=== PATIENT | female | born 1980 | race Hispanic/Latino ===

== ENCOUNTER 2017-10-14 12:28 | Emergency (ER) | payer BC ==
[2017-10-14 13:32] LABS: APPEARANCE,URINE Clear (CLEAR); BILIRUBIN,URINE Negative (NEGATIVE); COLOR,URINE Yellow (YELLOW); GLUCOSE, URINE (UA) Negative (NEGATIVE); KETONES,URINE Negative (NEGATIVE); LEUKOCYTE ESTERASE ,URINE Negative (NEGATIVE); NITRATE,URINE Negative (NEGATIVE); OCCULT BLOOD,URINE Negative (NEGATIVE); PH,URINE 6.5 (5.0-8.0); PROTEIN,URINE Negative (NEGATIVE); UROBILINOGEN,URINE 0.2 mg/dL (0.2-1.0)
[2017-10-14 13:49] LABS: HCG,QUAL RESULT NEGATIVE (NEGATIVE)
[2017-10-14] MEDS ORDERED: ORPHENADRINE CITRATE 30 MG/ML ML ONE (13:56)
[2017-10-14] MEDS ORDERED: KETOROLAC TROMETHAMINE 60 MG/2 ML VIAL ONE (13:57)
== END 2017-10-14 15:05 | disposition home or self-care (01) ==
LOC: EDH 12:28
DX: M54.5 Low back pain (principal)
CPT/HCPCS: 72100; 81003; 81025; 96372 ×2; 99285; J1885; J2360